=== PATIENT | male | born 1955 | race Caucasian/White ===

== ENCOUNTER 2022-06-24 07:47 | Outpatient (REF) | payer MEDICARE, SELFPAY ==
[2022-06-24 10:57] LABS: MANUAL DIFF FLAG NO
[2022-06-24 11:05] LABS: Basophils Absolute Auto 0.1 X10*3/uL (0.0-0.2); Eosinophils Absolute Auto 0.5 X10*3/uL (0.0-0.4); Eosinophils Percent Auto 10.8 % (0-4); Hematocrit 42.6 % (42.0-52.0); Imm Gran Abs Auto 0.02 X10*3/uL (0.00-0.03); Imm Gran Pct Auto 0.4 % (0.0-0.4); Lymphocytes Absolute Auto 1.7 X10*3/uL (1.2-4.9); Lymphocytes Percent Auto 33.7 % (20-40); Mean Corpuscular HGB Conc 32.9 g/dl (31.0-36.0); Mean Corpuscular Hemoglobin 28.7 pg (27.0-33.0); Mean Corpuscular Volume 87.5 fL (80.0-98.0); Mean Platelet Volume 9.6 fL (9.4-12.4); Monocytes Absolute Auto 0.6 X10*3/uL (0.1-1.2); Neutrophils Absolute Auto 2.1 x10*3/uL (2.0-8.3); Neutrophils Percent Auto 42.1 % (45-73); Platelet Count 262 X10*3/uL (160-400); Red Blood Count 4.87 X10*6/uL (4.60-5.80); Red Cell Distribution Width 13.5 % (11.0-16.0)
[2022-06-24 11:05] LABS: Appearance Urine Cloudy; Color Urine Yellow; Glucose Urine UA Negative (Negative); Leukocyte Esterase Urine Negative (Negative); Nitrite Urine Negative (Negative); PH 5.5 (5.0-9.0); Urine Blood Negative (Negative); Urine Ketones Negative (Negative); Urine Protein Negative (Neg-Trace)
[2022-06-24 11:11] LABS: Bacteria Urine None Seen (None Seen); Hyaline Casts Urine 0-2 /LPF (0-2); RBC Urine 0-2 /HPF (0-2); Squamous Epithelial Cell Urine 0-2 /HPF (0-2); WBC Urine 0-5 /HPF (0-5)
[2022-06-24 11:31] LABS: Alanine Aminotransferase 22 U/L (0-40); Albumin Level 4.2 g/dL (3.5-5.0); Alkaline Phosphatase 54 U/L (39-117); Anion Gap 12 (12-20); Aspartate Amino Transferase 23 U/L (5-37); Bilirubin Total 0.7 mg/dL (0.0-1.0); Blood Urea Nitrogen 23 mg/dL (9-16); Calcium 9.1 mg/dL (8.4-10.2); Carbon Dioxide 27 mmol/L (22-29); Chloride 108 mmol/L (96-108); Cholesterol 275 mg/dL; Estimated Glomerular Filt Rate > 60; Glucose Fasting 89 mg/dL (60-99); HDL Cholesterol 49 mg/dL; LDL Cholesterol Calculated 207 mg/dl; Potassium 4.4 mmol/L (3.3-5.1); Sodium 143 mmol/L (135-145); Total Protein 6.5 g/dL (6.5-8.0); Triglycerides 98 mg/dL
[2022-06-24 11:48] LABS: PSA,Total (Free>4and<10) 3.99 ng/mL (0.00-4.00); Thyroid Stimulating Hormone 2.64 uIU/mL (0.32-4.0); Vitamin D 25-OH Total 72.6 ng/mL (>30)
== END 2022-06-24 07:48 | disposition home or self-care (01) ==
LOC: HO.HMGCLDS 07:47
PROVIDERS: PCP Internal Medicine; Visit Provider Internal Medicine
DX: Z00.00 Encounter for general adult medical examination without abnormal findings (principal); E78.00 Pure hypercholesterolemia, unspecified; Z12.5 Encounter for screening for malignant neoplasm of prostate
CPT/HCPCS: 36415; 80053; 80061; 81001; 82306; 84153; 84443; 85025

== ENCOUNTER 2022-07-07 13:45 | Outpatient (REF) | payer MEDICARE, SELFPAY ==
--- NOTE | ~2022-07-07 | US_ITS ---
EXAMINATION: US THYROID CLINICAL INFORMATION: Family history of thyroid cancer. COMPARISON: None TECHNIQUE: Linear transducer grayscale and color Doppler examination with attention to the region of the thyroid. FINDINGS: SIZE: Measurements of the thyroid lobes and nodules are given in sagittal, anteroposterior and transverse dimensions respectively. Right Thyroid Lobe: 5.4 x 1.4 x 1.4 cm, volume 5.1 mL. Parenchyma: The gland echotexture is homogeneous. Thyroid vascularity is normal. Left Thyroid Lobe: 4.8 x 1.1 x 1.4 cm, volume 3.9 mL. Parenchyma: The gland echotexture is homogeneous. Thyroid vascularity is normal. Isthmus: 0.25 cm in maximum AP dimension. Estimated total number of nodules greater than or equal to 1 cm: 1. Tombstone Polisher nodules are described as follows: 1. Location: Right inferior. Size: 1.2 x 1.1 x 0.6 cm, volume 0.42 mL. Nodule characteristics: Composition: Solid/almost completely solid (2). Echogenicity: Hypoechoic (2). Shape: Not taller than wide (0). Margins: Smooth (0). Echogenic Foci: Punctate echogenic foci (3). ACR TI-RADS total points: 7 ACR TI-RADS category: 5 NODES: No lymphadenopathy is seen in the tissue surrounding the thyroid gland. US/US thyroid IMPRESSION: Suspicious appearing solitary right thyroid nodule. According to TI RADS criteria, fine-needle aspiration recommended. ACR TI-RADS RECOMMENDATION REFERENCE: Ultrasound-guided fine-needle aspiration, followup ultrasound, no further follow up. * TR1 (0 point) and TR2 (2 points): No FNA or follow up. * TR3 (3 points): FNA if more than or equal to 2.5 cm in maximum dimension, followup ultrasound in 1, 3 and 5 years if 1.5 to 2.4 cm in maximum dimension. * TR4 (4-6 points): FNA if more than or equal to 1.5 cm in maximum dimension, followup ultrasound in 1, 2, 3 and 5 years if 1 to 1.4 cm in maximum dimension. * TR5 (more than or equal to 7 points): FNA if more than or equal to 1 cm in maximum dimension, followup ultrasound every year for 5 years if 0.5 to 0.9 cm in maximum dimension. * TR3, TR4 or TR5 nodules that are below the size threshold for followup receive no follow up.
== END 2022-07-07 13:46 | disposition home or self-care (01) ==
LOC: HO.HMGCX 13:45
PROVIDERS: PCP Internal Medicine; Visit Provider Internal Medicine
DX: R39.89 Other symptoms and signs involving the genitourinary system (principal); Z80.8 Family history of malignant neoplasm of other organs or systems
CPT/HCPCS: 76536

== ENCOUNTER 2022-08-21 11:01 | Outpatient (REF) | payer MEDICARE, SELFPAY ==
[2022-08-22 10:44] LABS: Percent Free Prostate Spec Ag 29 % (calc) (>25); Prostate Specific Ag Total 3.4 ng/mL (< OR = 4.0)
== END 2022-08-21 11:02 | disposition home or self-care (01) ==
LOC: HO.HMGCLDS 11:01
PROVIDERS: PCP Internal Medicine; Visit Provider Urology
DX: Z12.5 Encounter for screening for malignant neoplasm of prostate (principal); R97.20 Elevated prostate specific antigen [PSA]
CPT/HCPCS: 36415; 84154

== ENCOUNTER 2022-09-23 08:01 | Outpatient (REF) | payer MEDICARE, SELFPAY ==
[2022-09-23 12:17] LABS: Alanine Aminotransferase 28 U/L (0-40); Albumin Level 4.3 g/dL (3.5-5.0); Alkaline Phosphatase 53 U/L (39-117); Anion Gap 10 (12-20); Aspartate Amino Transferase 28 U/L (5-37); Bilirubin Total 0.8 mg/dL (0.0-1.0); Blood Urea Nitrogen 21 mg/dL (9-16); Calcium 9.2 mg/dL (8.4-10.2); Carbon Dioxide 28 mmol/L (22-29); Chloride 107 mmol/L (96-108); Cholesterol 150 mg/dL; Estimated Glomerular Filt Rate > 60; Glucose Fasting 85 mg/dL (60-99); HDL Cholesterol 49 mg/dL; Potassium 4.6 mmol/L (3.3-5.1); Sodium 140 mmol/L (135-145); Total Protein 6.5 g/dL (6.5-8.0)
[2022-09-23 16:00] LABS: LDL Cholesterol Calculated 93 mg/dl; Triglycerides 42 mg/dL
[2022-09-28 19:18] LABS: Factor V Leiden NEGATIVE
== END 2022-09-23 08:02 | disposition home or self-care (01) ==
LOC: HO.HMGCLDS 08:01
PROVIDERS: PCP Internal Medicine; Visit Provider Internal Medicine
DX: Z00.00 Encounter for general adult medical examination without abnormal findings (principal); E78.00 Pure hypercholesterolemia, unspecified; R39.89 Other symptoms and signs involving the genitourinary system; I48.0 Paroxysmal atrial fibrillation
CPT/HCPCS: 36415; 80053; 80061; 81241

== ENCOUNTER 2023-03-30 07:00 | Day surgery (SDC) | payer MEDICARE, SELFPAY ==
[2023-03-27 12:16] VITALS: BMI 24.3
--- NOTE | 2023-03-29 09:51 | HO.ANESPROP2 ---
Documented by User: Leonor Hernandez NP 03/29/23 09:53 HPI - Anesthesia Eval Consult details Narrative: 68yo M for Colonoscopy Afib - flecinide, metoprolol, aspirin PMFSH Past Medical History Medical History Thyroid nodule Atrial fibrillation Osteoarthritis Prostate cancer Surgical History Surgical History Hx of total knee replacement H/O colonoscopy Social History Social History (Updated 03/27/23 @ 12:23 by Britany Clements RN) Patient Tobacco Use Status: Never used Tobacco Substance Use Frequency: Occasionally Are you DNR?: No Advance Directives: No Advance Directives Information Provided: Yes Nutrition Risks: No Nutritional Risk Meds Allergies Allergy/AdvReac Type Severity Reaction Status Date / Time No Known Allergies Allergy Verified 03/30/23 07:10 Home Medications Medication Instructions Recorded Confirmed Last Taken Type aspirin 81 mg tablet,delayed 81 mg PO DAILY 03/27/23 03/27/23 03/25/23 History release atorvastatin 20 mg tablet 20 mg PO BEDTIME 03/27/23 03/27/23 Unknown History flecainide 100 mg tablet 100 mg PO Q12H 03/27/23 03/27/23 03/30/23 History metoprolol succinate 25 mg 25 mg PO DAILY 03/27/23 03/27/23 03/30/23 History tablet,extended release 24 hr multivitamin 1 tab PO DAILY 03/27/23 03/27/23 Unknown History Exam Exam Date and Time: March 29, 2023 0951 Height,Weight and Vital Signs: Height 6 ft Weight 81.193 kg Pertinent Lab Results Pertinent Lab Results: Laboratory Tests 06/24/22 09/23/22 07:58 08:14 WBC 5.0 Hgb 14.0 Hct 42.6 Plt Count 262 Sodium 140 Potassium 4.6 Chloride 107 Carbon Dioxide 28 BUN 21 H Creatinine 1.05 Assessment and Plan Assessment Anesthesia Assessment: Chart Reviewed Documented by User: Shannan Sharma MD 03/30/23 07:35 [facility] Past Medical History Medical History Thyroid nodule Atrial fibrillation Osteoarthritis Prostate cancer Family History Family history of problems with anesthesia: No Surgical History Surgical History Hx of total knee replacement H/O colonoscopy History of Problems with Anesthesia: No Social History Social History (Updated 03/27/23 @ 12:23 by Britany Clements RN) Patient Tobacco Use Status: Never used Tobacco Substance Use Frequency: Occasionally Are you DNR?: No Advance Directives: No Advance Directives Information Provided: Yes Nutrition Risks: No Nutritional Risk Meds Allergies Allergy/AdvReac Type Severity Reaction Status Date / Time No Known Allergies Allergy Verified 03/30/23 07:10 Home Medications Medication Instructions Recorded Confirmed Last Taken Type aspirin 81 mg tablet,delayed 81 mg PO DAILY 03/27/23 03/27/23 03/25/23 History release atorvastatin 20 mg tablet 20 mg PO BEDTIME 03/27/23 03/27/23 Unknown History flecainide 100 mg tablet 100 mg PO Q12H 03/27/23 03/27/23 03/30/23 History metoprolol succinate 25 mg 25 mg PO DAILY 03/27/23 03/27/23 03/30/23 History tablet,extended release 24 hr multivitamin 1 tab PO DAILY 03/27/23 03/27/23 Unknown History Exam Airway Mallampati Class: I TM Dist: >3cm Neck ROM: Full Assessment and Plan Assessment Anesthesia Assessment: Anesthesia Plan Discussed Final Anesthetic Review Family History of Problems with Anesthesia: No History of Problems with Anesthesia: No NPO: Yes ASA Class: III Final Preanesthetic Review: No Changes in Pt Med Stat, Meds/Allgs Chart Reviewed, Consent Obtained/Reviewed and Anes Risks/Benef Reviewed Patient Risk: Intermediate Procedure Risk: Low Anesthetic Plan Anesthetic Plan: MAC: Disposition: Standard PACU
[2023-03-30] MEDS: Lactated Ringers 1,000 ML 100 ML IVCONT (07:15)
[2023-03-30 07:23] VITALS: BP 139/87; PULSE 66; RESP 18; TEMP 36.6; O2SAT 97
--- NOTE | 2023-03-30 08:19 | MHC.SHP ---
Pre-Procedural Eval Section A Date of Service: 03/30/23 Section B Chief Complaint: Encounter for screening for malignant neoplasm of Details of Present Illness: see h&p no changes Relevant Family History (Specify if Yes): No Relevant Social History: None Present Medications: None Medical History: No relevant PMH History of Previous Operations: No relevant previous surgery Allergies: Allergies Allergy/AdvReac Type Severity Reaction Status Date / Time No Known Allergies Allergy Verified 03/30/23 07:10 Review of Systems Sugical H&P ROS: Negative: Constitution, Cardiovascular, Respiratory, Neurological, Psychiatric, Hem-Onc, Allergic/Immunologic, Gastrointestinal, Genitourinary, Musculoskeletal, Integumentary, Endocrine and Eyes/Ears/Nose/Throat Exam Surgical H&P Exam: Normal: HEENT, Normal: Heart, Normal: Lungs, Normal: Extremities, Normal: Abdomen, Normal: Skin and Normal: Neurological Plan Diagnosis/Plan: Unchanged I have reviewed the history and physical and performed a pertinent physical examination on my patient. No changes have occurred unless specified. Time Spent With Patient Time: Total time managing care of this patient today ____ minutes.
--- NOTE | 2023-03-30 08:47 | PM.OP ---
Brief Operative Note Date of Service: 03/30/23 Pre-op diagnosis: scrrening Post-op diagnosis: same Procedure: colonoscopy Surgeon: Christopher Leslie MD Anesthesia: MAC Was an Band Cutting Machine Operator used for this Procedure?: No Estimated blood loss (mL): 0 Pathology: none sent Condition: stable Disposition: PACU
[2023-03-30 08:48] VITALS: BP 90/50; PULSE 50; RESP 16; TEMP 36.1; O2SAT 95
[2023-03-30 09:03] VITALS: BP 113/64; PULSE 51; RESP 18; TEMP 36.1; O2SAT 99
--- NOTE | 2023-03-30 09:22 | OP_ITS ---
DATE OF SERVICE: 03/30/2023 SURGEON: Christopher Leslie MD INDICATIONS: Colon cancer screening. PREOPERATIVE DIAGNOSIS: POSTOPERATIVE DIAGNOSIS: PROCEDURE PERFORMED: Colonoscopy to the terminal ileum. ESTIMATED BLOOD LOSS: COMPLICATIONS: ANESTHESIA: Monitored anesthesia care. ASSISTANTS: SPECIMENS: DESCRIPTION OF PROCEDURE: A history and physical were performed. The risks and benefits of the procedure were explained to the patient. Informed consent was obtained. The patient was placed in the left lateral decubitus position. Digital rectal exam was performed and was found to be normal. The Olympus pediatric video colonoscope was introduced into the rectum and advanced to the cecum without difficulty. The cecum was identified by transillumination, palpation, and identification of the ileocecal valve. Examination was performed, the scope was removed. He tolerated the procedure well and was returned to recovery in stable condition. FINDINGS: The terminal ileum was normal. Visualized colonic mucosa was normal. The quality of prep was good. There were small internal hemorrhoids noted on retroflexed examination. There was mild diverticulosis involving the sigmoid. IMPRESSION: Normal colonoscopy. RECOMMENDATIONS: 1. Follow up as needed. 2. Repeat colonoscopy is recommended in 10 years for average risk individuals. MD CHARLIE Burnette/GAURAV / [id number]
== END 2023-03-30 09:25 | disposition home or self-care (01) ==
PROVIDERS: PCP Internal Medicine; Visit Provider Internal Medicine Gastroenterology
PROC: 0DJD8ZZ Inspection of Lower Intestinal Tract, Via Natural or Artificial Opening Endoscopic (ICD-10-PCS; CPT 45378; principal; 2023-03-30 08:20)
DX: Z12.11 Encounter for screening for malignant neoplasm of colon (principal); Z86.010 Personal history of colon polyps; K64.8 Other hemorrhoids; K57.30 Diverticulosis of large intestine without perforation or abscess without bleeding; C61 Malignant neoplasm of prostate; I48.91 Unspecified atrial fibrillation; E04.1 Nontoxic single thyroid nodule; M19.90 Unspecified osteoarthritis, unspecified site; Z96.653 Presence of artificial knee joint, bilateral; Z79.1 Long term (current) use of non-steroidal anti-inflammatories (NSAID); Z79.82 Long term (current) use of aspirin; Z79.899 Other long term (current) drug therapy
CPT/HCPCS: G0105

== ENCOUNTER 2023-04-10 07:55 | Outpatient (REF) | payer MEDICARE, SELFPAY ==
[2023-04-14 15:23] LABS: Testosterone, Total 6 ng/dL (250-1100)
== END 2023-04-10 07:56 | disposition home or self-care (01) ==
LOC: HO.HMGCLDS 07:55
PROVIDERS: PCP Internal Medicine; Visit Provider Physician Assistant
DX: R97.20 Elevated prostate specific antigen [PSA] (principal)
CPT/HCPCS: 36415; 84403

== ENCOUNTER 2023-10-09 13:50 | Outpatient (REF) | payer MEDICARE, SELFPAY ==
[2023-10-09 17:11] LABS: Prostate Specific Antigen < 0.10 ng/mL (<0.05-4.0)
[2023-10-13 14:03] LABS: Testosterone, Total 8 ng/dL (250-1100)
== END 2023-10-09 13:51 | disposition home or self-care (01) ==
LOC: HO.HMGCLDS 13:50
PROVIDERS: PCP Internal Medicine; Visit Provider Urology
DX: C61 Malignant neoplasm of prostate (principal); Z12.5 Encounter for screening for malignant neoplasm of prostate
CPT/HCPCS: 36415; 84153; 84403

== ENCOUNTER 2023-11-12 07:23 | Outpatient (REF) | payer MEDICARE, SELFPAY ==
[2023-11-12 10:16] LABS: MANUAL DIFF FLAG NO
[2023-11-12 10:18] LABS: Basophils Percent Auto 0.5 % (0-2); Eosinophils Absolute Auto 0.5 X10*3/uL (0.0-0.4); Eosinophils Percent Auto 12.4 % (0-4); Hematocrit 38.4 % (42.0-52.0); Hemoglobin 12.7 g/dl (14.0-18.0); Imm Gran Abs Auto 0.01 X10*3/uL (0.00-0.03); Imm Gran Pct Auto 0.3 % (0.0-0.4); Lymphocytes Absolute Auto 0.9 X10*3/uL (1.2-4.9); Lymphocytes Percent Auto 23.2 % (20-40); Mean Corpuscular HGB Conc 33.1 g/dl (31.0-36.0); Mean Corpuscular Hemoglobin 29.7 pg (27.0-33.0); Mean Corpuscular Volume 89.7 fL (80.0-98.0); Mean Platelet Volume 9.7 fL (9.4-12.4); Monocytes Absolute Auto 0.4 X10*3/uL (0.1-1.2); Monocytes Percent Auto 10.2 % (2-11); Neutrophils Percent Auto 53.4 % (45-73); Platelet Count 168 X10*3/uL (160-400); Red Blood Count 4.28 X10*6/uL (4.60-5.80); Red Cell Distribution Width 13.6 % (11.0-16.0); White Blood Count 3.7 X10*3/uL (4.8-10.8)
[2023-11-12 10:59] LABS: Alanine Aminotransferase 22 U/L (0-40); Alkaline Phosphatase 58 U/L (39-117); Anion Gap 11 (12-20); Aspartate Amino Transferase 26 U/L (5-37); Bilirubin Total 0.4 mg/dL (0.0-1.0); Blood Urea Nitrogen 20 mg/dL (9-16); Carbon Dioxide 27 mmol/L (22-29); Chloride 111 mmol/L (96-108); Cholesterol 160 mg/dL (<200); Estimated Glomerular Filt Rate > 60; Glucose Fasting 92 mg/dL (60-99); HDL Cholesterol 55 mg/dL (>40); LDL Cholesterol Calculated 91 mg/dL (<100); Potassium 3.9 mmol/L (3.3-5.1); Sodium 145 mmol/L (135-145); Total Protein 6.4 g/dL (6.5-8.0); Triglycerides 73 mg/dL (<150)
[2023-11-12 11:02] LABS: Thyroid Stimulating Hormone 2.37 uIU/mL (0.32-4.0); Vitamin D 25-OH Total 61.2 ng/mL (>30)
== END 2023-11-12 07:24 | disposition home or self-care (01) ==
LOC: HO.HMGCLDS 07:23
PROVIDERS: PCP Internal Medicine; Visit Provider Internal Medicine
DX: E78.00 Pure hypercholesterolemia, unspecified (principal); I48.0 Paroxysmal atrial fibrillation; C61 Malignant neoplasm of prostate
CPT/HCPCS: 36415; 80053; 80061; 82306; 84443; 85025

== ENCOUNTER 2024-10-21 14:06 | Outpatient (AMB) | payer MEDICARE, SELFPAY ==
--- OUTSIDE RECORDS SUMMARY | 2024-10-21 14:18 | XMS_ITS | Continuity of Care Document ---
Author Organization [facility] Address [address] [place] [address] Phone [phone] Care Team Providers Care Warehouse Lead Name Role Phone Bhavesh Li M.D. Care Team Information Recei ra [phone] Problems Active Problems Provider Date Thyroid nodule Oniel Baeza M.D. Onset: 0 07/12/2022 Hypercholesterolemia Oniel Baeza M.D. Ons et: 07/12/2022 Osteoarthritis of knee Oniel Baeza M.D. O nset: 07/12/2022 Lyme disease Oniel Baeza M.D. Onset: 0 07/12/2022 Atrial fibrillation Oniel Baeza M.D. Onse t: 07/12/2022 Social History Type Date Description Comments Sex Unknown Tobacco Use Start: Unknown Never Smoked Cigarettes ETOH Use Occasionally consumes alcoho l Allergies and adverse reactions Description No Known Drug Allergies Medications Active Medications SIG Qnty Indications Ordering Provider Date Aspirin 8181mg Tablets DR 1 tab by mouth every day 90tabs Oniel Baeza M.D. 07/12/2022 Flecainide [id number] Tablets Take 1 Tablet By Mouth Every 12 Hours Unknown Atorvastatin [id number] Tablets Take 1 Tablet By Mouth Every Day For 30 Days Bhavesh Li M.D. Metoprolol Succinate ER25mg Tablets ER 24HR Take 1/2 Tablet By Mouth Daily Unknown Vital Signs Date Vital Result Comment 07/12/2023 10:02am BP Systolic 150 mmHg BP Diastolic 90 mmHg Heart Rate 64 /min Height 72 inches 6'0 Weight 192.38 lb BMI (Body Mass Index) 26.1 kg/m2 Results Test Acquired Date Facility Test Result H/L Range N ote TSH With Reflex To FT4 07/12/2023 [facility] TSH With Reflex To FT4 2.09 uIU/mL (0.4-4.2) Medical Devices Description No Information Available Encounters Type Date Location Provider Dx Diagnosis Office Visit 07/12/2023 10:00a Main Office Oniel Baeza M.D. E04.1 Nontoxic single thyroid nodule Assessments Date Code Description Provider 07/12/2023 E04.1 Nontoxic single thyroid nodu le Oniel Baeza M.D. Plan of Treatment Future Appointment(s):* 11/19/2024 11:00 am - Oniel Baeza M.D. at Main Office 07/12/2023 - Oniel Baeza M.D.* E04.1 Nontoxic single thyroid nodule* New Xrays:* Ultrasound Thyroid, Scheduled: 07/27/23 Functional Status Description No Information Available Mental Status Description No Information Available Referrals Description No Information Available
--- NOTE | 2024-10-21 14:20 | A.OFFPC_ITS ---
Vital Signs 10/21/24 14:25 Weight 189 lb BP 132/64 Blood Pressure Location Lt brachial Pulse 57 Pulse Source Pulse Oximeter Temp 97.6 F Pulse Oximetry (%) 94 Intake Visit Reasons: physical - see comments Intake Note: Upper glute on the left side [place] when he lifts his leg up or walk it's going on 4 weeks. Allergies No Known Allergies Allergy (Verified 10/21/24 14:43) Medication List - Last Reconciled 10/21/24 by Jayda Bender PA-C aspirin 81 mg PO DAILY atorvastatin 20 mg PO BEDTIME flecainide 100 mg PO Q12H metoprolol succinate ER 25 mg PO DAILY multivitamin 1 tab PO DAILY HPI physical - see comments HPI Details The patient is a 69-year-old male presenting for an annual physical examination and to establish new care with a primary care provider. He reports persistent left gluteal pain following a fall approximately four weeks ago. The pain, described as a mild to moderate barking sensation, is exacerbated by walking and relieved slightly by ibuprofen. No significant falls have been reported aside from the initial incident. The patient remains highly physically active but notes a disruption in his usual jogging routine. His medical history includes treated prostate cancer with radiation, ongoing monitoring by his urologist, and management of atrial fibrillation with medication of aspirin. The patient also reports monitoring of a benign thyroid nodule and an esophageal nodule, with regular follow-up appointments. Additionally, he has undergone bilateral knee replacements and expresses a de sire to maintain his active lifestyle. Social History - The patient is retired and lives with his partner. - Engages in daily exercise and recreati onal activities such as basketball and jogging. - Reports high physical activity levels despite recent limitations due to gluteal pain. - No current employment and utilizes ret irement for leisure and maintaining physical fitness. [facility] Medical History (Updated 10/21/24 @ 15:22 by Jayda Bender PA-C) Nodule of esophagus Anemia Annual physical exam Left hip pain Left buttock pain Pure hypercholesterolemia, unspecified Establishing care with new doctor, encounter for Thyroid nodule Atrial fibrillation Osteoarthritis Prostate cancer Surgical History Hx of total knee replacement H/O colonoscopy (~03/30/23) Social History Patient Tobacco Use Status: Never used Tobacco Questionnaire PHQ-9 Over the last 2 weeks, how often have you been bothered by any of the following problems? 1. Little interest or pleasure in doing things: not at all 2. Feeling down, depressed, or hopeless: not at all 3. Trouble falling or staying asleep, or sleeping too much: not at all 4. Feeling tired or having little energy: not at all 5. Poor appetite or overeating: not at all 6. Feeling bad about yourself - or that you are a failure or have let yourself or your family down: not at all 7. Trouble concentrating on things, such as reading the newspaper or watching television: not at all 8. Moving or speaking so slowly that other people could have noticed. Or the opposite - being so fidgety or restless that you have been moving around a lot more than usual: not at all 9. Thoughts that you would be better off or of hurting yourself in some way: not at all Total score: 0 Depression Screening Interpretation: Negative Depression Screening Done: Yes 50095 - PHQ-9 Billing: Yes Source: Developed by Drs. Bhavesh Barkley, Rut Prince, Ru Linda and colleagues, with an educational francisco javier from [employer]. Thrive Questionnaire Date Thrive assessed: 10/21/24 I am a: Patient What is your living situation today?: I have a steady place to live Within the past 12 months, did the food you bought not last and you didn't have the money to get more?: Never true Within the past 12 months, did you worry whether your food would run out before you got money to buy more?: Never true Do you have trouble paying for medicines?: No Do you have trouble getting transportation to medical appointments?: No Do you have trouble paying your heating and electricity bill?: No Do you have trouble taking care of your child, family member or friend?: No Do you have trouble with day-to-day activities such as bathing, preparing meals, shopping, managing finances, etc.?: No Are you currently unemployed and looking for a job?: No Are you interested in more education?: No THRIVE Score: 0 AUDIT C Alcohol Use Questionnaire (AUDIT-C) 1. How often do you have a drink containing alcohol?: Monthly or less 2. How many drinks containing alcohol do you have on a typical day when you are drinking?: 1 or 2 3. How often do you have six or more drinks on one occasion?: Never Total Score: 1 Score Reviewed/Action Taken: No JENNIE-7 AMB Questionnaire JENNIE-7 Date JENNIE - 7 assessed: 10/21/24 Feeling nervous, anxious, or on edge: 0 = Not at all Not being able to stop or control worryin = Not at all Worrying too much about different things: 0 = Not at all Trouble relaxin = Not at all Being so restless that it is hard to sit still: 0 = Not at all Becoming easily annoyed or irritable: 0 = Not at all Feeling afraid as if something awful might happen: 0 = Not at all Total JENNIE-7 score (0-4 normal; 5-9 mild; 10-14 moderate; 15-21 severe): 0 Source: Developed by Drs. Bhavesh Barkley, Rut Prince, Ru Linda and colleagues, with an educational francisco javier from [employer]. JENNIE-7 Assessment Billing JENNIE-7 Assessment Tool: JENNIE-7 Assessment 41902 Review of Systems Const Details: - Musculoskeletal: Reports left gluteal pain exacerbated by walking. Denies other joint pain or recent significant falls. - Cardiovascular: Denies chest pain or shortness of breath. - Neurological: Denies dizziness or weakness. - Gastrointestinal: Denies changes in appetite, nausea, or vomiting. - Genitourinary: Denies changes in urination. - Endocrine: Denies weight change, apart from intended weight loss for fitness. Physical exam (Primary Care) Vital Signs: Last Vital Signs Temp 97.6 F 10/21/24 14:25 Pulse 57 10/21/24 14:25 BP 132/64 10/21/24 14:25 Pulse Ox 94 10/21/24 14:25 Care Plan Goal for BP management: <140/90 at Goal Tobacco/Smoking Status: Tobacco use Status Patient Tobacco Use Status Never used Tobacco 10/21/24 14:22 PHQ-9: PHQ-9 Score PHQ-9: Total score 0 10/21/24 14:37 Depression Screening Interpretation: Negative Thrive Assessment: Date of Thrive Assessment Date Thrive assessed 10/21/24 10/21/24 14:36 Const Other: Appearance: Alert. Oriented X3. No acute distress. Head: Normal external exam. Normocephalic. Atraumatic. Eyes: Pupils are equal, round, and reactive to light. Extraocular movements intact. Conjunctiva and sclera normal. Eyelids normal. Throat: Pharynx normal. Uvula midline. Moist mucous membranes. Neck: Normal inspection. Neck supple. Full range of motion. Cardiovascular: Normal heart rate and rhythm. Heart sound normal. Pulses normal throughout. Respiratory: No respiratory distress. Painless inspiration. Breath sounds normal. No wheezes/rales/rhonchi noted. Chest nontender. No accessory muscle usage noted or decreased air movement noted. Abdomen: Soft and nontender. Back: No costovertebral angle tenderness. Full range of motion noted. Tenderness to left gluteal/left hip area. No obvious bruises, rashes or signs of infection. No tenderness over the lumbar spine. No step-offs or deformities are noted. Patient has a normal steady gait. Skin: Skin warm and dry. Normal skin color. Normal skin turgor. No rashes/lesions/lacerations noted. Extremities: No lower extremity edema. Extremities exhibit normal range of motion. Tenderness noted in the left gluteal region, with a pressure point that increases pain. Neuro: Oriented X 3. No motor deficit. No sensory deficit. Reflexes normal. Results Reviewed Results Reviewed: - Labs: Mentioned PSA and testosterone levels assessed approx. one and a half weeks ago; detailed results pending review. - Imaging: X-rays planned for left hip and gluteal region to rule out structural anomalies. Coding Level of Care Code Est Pt Level 4 (60696) New Pt Prev Care >65yr (67278) Diagnoses Left hip pain M25.552 Left buttock pain M79.18 Prostate cancer C61 Atrial fibrillation I48.91 Osteoarthritis M19.90 Pure hypercholesterolemia, unspecified E78.00 Thyroid nodule E04.1 Establishing care with new doctor, encounter for Z76.89 Annual physical exam Z00.00 Anemia D64.9 Nodule of esophagus K22.9 Additional Codes PHQ-9 - 75549 - PHQ-9 Billing: Yes ([id number]) JENNIE-7 Assessment Billing - JENNIE-7 Assessment Tool: JENNIE-7 Assessment 69355 ([id number]) Assessment & Plan Assessment & Plan (1) Left hip pain: Code(s): M25.552 - Pain in left hip Category: Medical Plan: X-rays for the left hip and gluteal region are planned alongside a trial of Meloxicam and muscle relaxants for pain management. (2) Left buttock pain: Code(s): M79.18 - Myalgia, other site Category: Medical Plan: X-rays for the left hip and gluteal region are planned alongside a trial of Meloxicam and muscle relaxants for pain management. (3) Prostate cancer: Comment: following w/radiation-oncology. Hormone therapy as well x 2 years testosterone blockers; stopped this year. Code(s): C61 - Malignant neoplasm of prostate Category: Medical Plan: The patient continues with PSA monitoring post-radiation therapy, under the guidance of his urologist. Condition is chronic and stable continue to monitor. (4) Atrial fibrillation: Comment: follows w/[facility] cardiology-taking ASA, flecainide, metoprolol Code(s): I48.91 - Unspecified atrial fibrillation Category: Medical Plan: Maintenance of current antiarrhythmic regimen, with ongoing cardiology follow- up. Condition is chronic and stable continue to monitor. (5) Osteoarthritis: Code(s): M19.90 - Unspecified osteoarthritis, unspecified site Category: Medical Plan: Condition is chronic and stable continue to monitor. (6) Pure hypercholesterolemia, unspecified: Code(s): E78.00 - Pure hypercholesterolemia, unspecified Category: Medical Plan: Patient to continue atorvastatin 20 mg at bedtime. Condition is chronic and stable continue to monitor. (7) Thyroid nodule: Comment: benign Code(s): E04.1 - Nontoxic single thyroid nodule Category: Medical Plan: Continued observation by endocrinology, ensuring vigilant monitoring. Condition is chronic and stable continue to monitor. (8) Establishing care with new doctor, encounter for: Code(s): Z76.89 - Persons encountering health services in other specified circumstances Category: Medical (9) Annual physical exam: Code(s): Z00.00 - Encounter for general adult medical examination without abnormal findings Category: Medical (10) Anemia: Code(s): D64.9 - Anemia, unspecified Category: Medical Plan: Repeat laboratory tests to reassess anemia status and ensure improvement. (11) Nodule of esophagus: Code(s): K22.9 - Disease of esophagus, unspecified Category: Medical Plan: Surveillance via gastroenterology to monitor for any changes. Condition is chronic and stable continue to monitor. Plan Plan Patient was informed and verbally consented to the use of an ambient scribe for clinic note documentation during this visit. 1. Left Gluteal Pain X-rays for the left hip and gluteal region are planned alongside a trial of Meloxicam and muscle relaxants for pain management. 2. Prostate Cancer The patient continues with PSA monitoring post-radiation therapy, under the guidance of his urologist. 3. Atrial Fibrillation Maintenance of current antiarrhythmic regimen, with ongoing cardiology follow- up. 4. Benign Thyroid Nodule Continued observation by endocrinology, ensuring vigilant monitoring. 5. Esophageal Nodule Surveillance via gastroenterology to monitor for any changes. 6. Hyperlipidemia Continuation of atorvastatin therapy, with lipid levels well-controlled. 7. Anemia Repeat laboratory tests to reassess anemia status and ensure improvement. During the consultation, I discussed the patient's current symptoms of left gluteal pain and our plan to conduct imaging studies to assess any underlying structural issues. I recommended trying Meloxicam, an NSAID, as it may provide enhanced pain relief compared to the current ibuprofen regimen, and explained the potential benefits and side effects, especially noting the potential for drowsiness with muscle relaxants. In terms of follow-up for prostate cancer, we confirmed that PSA monitoring is ongoing through [facility]. 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 I reviewed the importance of regular monitoring for his thyroid and esophageal nodules with the respective specialists. I reiterated the excellent management of hyperlipidemia with atorvastatin, providing a refill as needed. Lastly, I ordered comprehensive bloodwork to reassess previously noted anemia and evaluate general wellness, including kidney function, thyroid function, and liver profile. I emphasized the importance of ongoing vigilance in monitoring the patient's active lifestyle, potential impacts on his current conditions, and preventive health strategies. Orders: Orders XR hip LT w PEL1V Today M25.552 - Pain in left hip, M79.18 - Myalgia, other site C Reactive Protein Today Z00.00 - Encounter for general adult medical examinat ion without abnormal findings Complete Blood Count Auto Diff Today Z00.00 - Encounter for general adult medical examination without abnormal findings Comprehensive [place]. Panel Fast Today Z00.00 - Encounter for general adult medical examination without abnormal findings Liver Panel Today Z00.00 - Encounter for general adult medical examination without abnormal findings Lipid Panel Today Z00.00 - Encounter for general adult medical examination without abnormal findings Vitamin B12 and Folate Today Z00.00 - Encounter for general adult medical examination without abnormal findings Vitamin D 25-OH Total Today Z00.00 - Encounter for general adult medical examination without abnormal findings Magnesium Today Z00.00 - Encounter for general adult medical examination without abnormal findings XR sacrum coccyx min 2V Today M79.18 - Myalgia, other site Hemoglobin A1c Today Z00.00 - Encounter for general adult medical examination without abnormal findings TSH reflex Free T4 Today Z00.00 - Encounter for general adult medical examination without abnormal findings Medications: New atorvastatin 20 mg PO BEDTIME 90 tabs 1RF meloxicam 15 mg PO DAILY 30 tabs 1RF cyclobenzaprine 10 mg PO Q8H 30 tabs 1RF Patient Instructions: - Take Meloxicam as prescribed once daily for pain relief. - Use muscle relaxants as needed, but be cautious of drowsiness. - Follow up with urology for PSA monitoring and thyroid monitoring with endocrinology. - Continue current cardiovascular medications and follow up with cardiology. - Have blood work completed after fasting as directed; results will be available in the patient portal. - Follow up imaging can be done at your convenience to assess the left hip/gluteal region. - Continue regular physical activity as tolerated, and avoid activities that exacerbate discomfort. - Report any increases in symptoms or new concerns promptly.
[2024-10-21 14:25] VITALS: BP 132/64; PULSE 57; TEMP 36.4; O2SAT 94
== END 2024-10-21 15:09 | disposition home or self-care (01) ==
LOC: HO.HMCSH 14:06
PROVIDERS: PCP Internal Medicine; Visit Provider Physician Assistant Medical
DX: Z00.00 Encounter for general adult medical examination without abnormal findings (principal); M25.552 Pain in left hip; C61 Malignant neoplasm of prostate; I48.91 Unspecified atrial fibrillation; M79.18 Myalgia, other site; M19.90 Unspecified osteoarthritis, unspecified site; E78.00 Pure hypercholesterolemia, unspecified; E04.1 Nontoxic single thyroid nodule; Z76.89 Persons encountering health services in other specified circumstances; D64.9 Anemia, unspecified; K22.9 Disease of esophagus, unspecified

== ENCOUNTER 2024-10-21 14:06 | Outpatient (REF) | payer MEDICARE, SELFPAY ==
--- NOTE | ~2024-10-21 | XR_ITS ---
EXAMINATION: XR SACRUM AND COCCYX CLINICAL INFORMATION: M79.18 - Myalgia, other site COMPARISON: None available. TECHNIQUE: 2 views of the sacrum and 2 views of the coccyx were obtained. FINDINGS: There are no fractures, dislocations, or suspicious bone lesions. Normal-appearing coccyx. Mild degenerative changes in the bilateral SI joints and lower lumbar spine. Sacrum appears intact. Fiducial markers in the region of the prostate. Soft tissues otherwise normal. XR/XR sacrum coccyx min 2V IMPRESSION: Unremarkable examination of the sacrum and coccyx. Electronically signed by: Richie Cali MD 10/22/2024 10:18 AM EDT
--- NOTE | ~2024-10-21 | XR_ITS ---
EXAMINATION: XR HIP, LEFT CLINICAL INFORMATION: M25.552 - Pain in left hip COMPARISON: None available. TECHNIQUE: Two views of the left hip. FINDINGS: No fracture, dislocation, or suspicious bone lesion. Preserved left hip joint space. No significant arthrosis. No evidence of AVN. Normal femoral head contour bilaterally. The sacrum and SI joints appear normal. The pelvis is intact. There are fiducial markers within the prostate. There are vasectomy clips in the scrotum. Soft tissues otherwise normal. XR/XR hip LT w PEL1V IMPRESSION: Normal radiographs left hip. Electronically signed by: Richie Cali MD 10/22/2024 10:17 AM EDT
== END 2024-10-21 14:07 | disposition home or self-care (01) ==
LOC: HO.HMGCX 14:06
PROVIDERS: PCP Physician Assistant Medical; Visit Provider Physician Assistant Medical
DX: Z00.00 Encounter for general adult medical examination without abnormal findings (principal); M25.552 Pain in left hip; M79.18 Myalgia, other site; C61 Malignant neoplasm of prostate; I48.91 Unspecified atrial fibrillation; M19.90 Unspecified osteoarthritis, unspecified site; E78.00 Pure hypercholesterolemia, unspecified; D64.9 Anemia, unspecified; K22.9 Disease of esophagus, unspecified; Z76.89 Persons encountering health services in other specified circumstances
CPT/HCPCS: 72220; 73502; 96127; 99212; 99387

== ENCOUNTER → 2024-10-21 15:25 | Outpatient (BNV) | payer MEDICARE, SELFPAY | PROVIDERS: PCP Physician Assistant Medical; Visit Provider Radiology Diagnostic Radiology | DX: M25.552 Pain in left hip (principal); M79.18 Myalgia, other site | CPT/HCPCS: 72220; 73502 ==

== ENCOUNTER 2024-11-22 08:02 | Outpatient (REF) | payer MEDICARE, SELFPAY ==
--- OUTSIDE RECORDS SUMMARY | 2024-11-22 08:04 | XMS_ITS | Continuity of Care Document ---
Author Organization [facility] Address [address] [place] [address] Phone [phone] Care Team Providers Care Environmental Emergencies Assistant Name Role Phone Bhavesh Li M.D. Care Team Information Recei ra [phone] Problems Active Problems Provider Date Thyroid nodule Oniel Baeza M.D. Onset: 0 07/12/2022 Hypercholesterolemia Oniel Baeza M.D. Ons et: 07/12/2022 Osteoarthritis of knee Oniel Baeza M.D. O nset: 07/12/2022 Lyme disease Oniel Baeza M.D. Onset: 0 07/12/2022 Atrial fibrillation Oniel Baeza M.D. Onse t: 07/12/2022 Social History Type Date Description Comments Sex Male Sex Unknown Tobacco Use Start: Unknown Never Smoked Cigarettes ETOH Use Occasionally consumes alcoho l Allergies and adverse reactions Description No Known Drug Allergies Medications Active Medications SIG Qnty Indications Ordering Provider Date Aspirin 8181mg Tablets DR 1 tab by mouth every day 90tabs Oniel Baeza M.D. 07/12/2022 Flecainide [id number] Tablets Take 1 Tablet By Mouth Every 12 Hours Unknown Atorvastatin [id number] Tablets Take 1 Tablet By Mouth Every [...] ote TSH With Reflex To FT4 07/12/2023 [facility] TSH With Reflex To FT4 2.09 uIU/mL (0.4-4.2) Medical Devices Description No Information Available Encounters Type Date Location Provider Dx Diagnosis Office Visit 07/12/2023 10:00a Main Office Oniel Baeza M.D. E04.1 Nontoxic single thyroid nodule Assessments Date Code Description Provider 07/12/2023 E04.1 Nontoxic single thyroid nodu le Oniel Baeza M.D. Plan of Treatment Future Appointment(s):* 03/17/2025 3:15 pm - Oniel Baeza M.D. at Main Office 07/12/2023 - Oniel Baeza M.D.* E04.1 Nontoxic single thyroid nodule* New Xrays:* Ultrasound Thyroid, Scheduled: 07/27/23 Functional Status Description No Information Available Mental Status Description No Information Available Referrals Description No Information Available
[2024-11-22 11:04] LABS: MANUAL DIFF FLAG NO
[2024-11-22 11:17] LABS: Basophils Percent Auto 1.1 % (0-2); Eosinophils Absolute Auto 0.5 X10*3/uL (0.0-0.4); Eosinophils Percent Auto 13.3 % (0-4); Hematocrit 40.2 % (42.0-52.0); Hemoglobin 13.4 g/dl (14.0-18.0); Imm Gran Abs Auto 0.01 X10*3/uL (0.00-0.03); Imm Gran Pct Auto 0.3 % (0.0-0.4); Lymphocytes Absolute Auto 0.7 X10*3/uL (1.2-4.9); Mean Corpuscular HGB Conc 33.3 g/dl (31.0-36.0); Mean Corpuscular Hemoglobin 29.3 pg (27.0-33.0); Mean Platelet Volume 9.4 fL (9.4-12.4); Monocytes Absolute Auto 0.3 X10*3/uL (0.1-1.2); Monocytes Percent Auto 9.6 % (2-11); Neutrophils Absolute Auto 1.9 x10*3/uL (2.0-8.3); Neutrophils Percent Auto 54.7 % (45-73); Platelet Count 201 X10*3/uL (160-400); Red Blood Count 4.57 X10*6/uL (4.60-5.80); Red Cell Distribution Width 13.2 % (11.0-16.0); White Blood Count 3.5 X10*3/uL (4.8-10.8)
[2024-11-22 11:27] LABS: Estimated Average Glucose 105 mg/dL; Hemoglobin A1C 121.0754 umol/L; Hemoglobin A1c % 5.3 % (<6.0)
[2024-11-22 11:32] LABS: Alanine Aminotransferase 26 U/L (0-40); Albumin Level 4.4 g/dL (3.5-5.0); Alkaline Phosphatase 75 U/L (39-117); Anion Gap 10 (12-20); Aspartate Amino Transferase 36 U/L (5-37); Bilirubin Direct 0.2 mg/dL (0.0-0.5); Bilirubin Total 0.5 mg/dL (0.0-1.0); Blood Urea Nitrogen 26 mg/dL (9-16); C Reactive Protein 0.15 mg/dL (< or = 0.50); Calcium 9.2 mg/dL (8.4-10.2); Carbon Dioxide 26 mmol/L (22-29); Chloride 111 mmol/L (96-108); Cholesterol 191 mg/dL (<200); Estimated Glomerular Filt Rate > 60; Glucose Fasting 88 mg/dL (60-99); HDL Cholesterol 64 mg/dL (>40); LDL Cholesterol Calculated 114 mg/dL (<100); Magnesium 2.2 mg/dL (1.6-2.6); Potassium 4.2 mmol/L (3.3-5.1); Sodium 143 mmol/L (135-145); Total Protein 6.7 g/dL (6.5-8.0); Triglycerides 68 mg/dL (<150)
[2024-11-22 11:58] LABS: Vitamin B12 649 pg/mL (200-900)
[2024-11-22 12:11] LABS: TSH reflex Free T4 2.02 uIU/mL (0.32-4.0); Vitamin D 25-OH Total 75.8 ng/mL (>30)
== END 2024-11-22 08:03 | disposition home or self-care (01) ==
LOC: HO.HMGCLDS 08:02
PROVIDERS: PCP Internal Medicine; Visit Provider Physician Assistant Medical
DX: Z00.00 Encounter for general adult medical examination without abnormal findings (principal); Z13.1 Encounter for screening for diabetes mellitus; Z13.6 Encounter for screening for cardiovascular disorders
CPT/HCPCS: 36415; 80053; 80061; 80076; 82248; 82306; 82607; 82746; 83036; 83735; 84443; 85025; 86140